=== PATIENT | female | born 1975 | race Caucasian/White ===

== ENCOUNTER 2017-07-14 14:55 | Emergency (ER) | payer OTHER ==
[~2017-07-14] VITALS: Ht 167.6 cm; Wt 101.6 kg
[~2017-07-14 14:55] MED LIST: ALBU90OI61; AMOX500 PO; ASPI325 PO; ASPI325EC; ASPI325EC PO; CITA20 PO; COMBIVENT RESPIM4 GM; DOXE25; INS70/30PN; INSUASPI SC; LANTUS SC; LISI10; LISI20 PO; LISI5 PO; Lamotrigine25 MG PO; MELO7.5; METO50; METO50ER PO; MIRT15 PO; Naprosyn500 MG PO; OMEP20ER PO; PERM5TC TOP; ROPI.25 PO; ROPI1 PO; SIMV40 PO; TIAZAC; TRAZ50; Ultram50 MG PO
[2017-07-14 15:24] LABS: BASOPHILS ABSOLUTE AUTO 0.02 K/mm3 (0.00-0.23); BASOPHILS PERCENT AUTO 0 % (0-2); EOSINOPHILS ABSOLUTE AUTO 0.13 K/mm3 (0.00-0.68); EOSINOPHILS PERCENT AUTO 1 % (0-6); Hematocrit 40.6 % (33.0-51.0); Hemoglobin 13.3 g/dL (11.5-16.0); IMMATURE GRAN ABSOLUTE AUTO 0.02 K/mm3 (0.00-0.10); IMMATURE GRAN PERCENT AUTO 0 % (0-1); LYMPHOCYTES ABSOLUTE AUTO 2.04 K/mm3 (0.84-5.20); LYMPHOCYTES PERCENT AUTO 22 % (21-46); MONOCYTES ABSOLUTE AUTO 0.42 K/mm3 (0.16-1.47); MONOCYTES PERCENT AUTO 4 % (4-13); Mean Corpuscular HGB 29.2 pg (26.0-34.0); Mean Corpuscular HGB Conc 32.8 g/dL (31.5-36.5); Mean Corpuscular Volume 89 fL (80-100); Mean Platelet Volume 8.9 fL (9.1-12.4); NEUTROPHILS ABSOLUTE AUTO 6.88 K/mm3 (1.96-9.15); NEUTROPHILS PERCENT AUTO 72 % (41-73); Platelet Count 336 K/mm3 (150-400); RDW Coefficient Variation 13.9 % (11.7-14.2); RDW Standard Deviation 45.4 fL (35.1-46.3); Red Blood Cell Count 4.55 M/mm3 (3.80-5.20); White Blood Cell Count 9.51 K/mm3 (4.00-11.30)
[2017-07-14 15:41] LABS: Source, Urine Clean Catch
[2017-07-14 15:42] LABS: Alanine Aminotransfer (ALT/SGP 21 U/L (12-78); Albumin, Blood 3.3 g/dL (3.4-5.0); Albumin/Globulin Ratio 0.9 (0.8-1.8); Alk Phos 144 U/L (50-136); Anion Gap 7 mmol/L (6-16); Aspartate Aminotrans (AST/SGOT 9 U/L (12-37); Bilirubin, Total 0.3 mg/dL (0.1-1.0); Blood Urea Nitrogen 14 mg/dL (8-24); CO2, Blood 26 mmol/L (21-32); Calcium, Blood 8.5 mg/dL (8.5-10.1); Chloride, Blood 106 mmol/L (98-108); Creatinine, Blood 0.56 mg/dL (0.40-1.00); Globulin, Blood 3.8 g/dL (2.2-4.0); Glomerular Filtration Rate >60 (60-); Glucose, Blood 253 mg/dL (70-99); Potassium, Blood 3.7 mmol/L (3.5-5.5); Sodium, Blood 139 mmol/L (136-145); Total Protein, Blood 7.1 g/dL (6.4-8.2)
[2017-07-14 16:01] LABS: Appearance, Urine Clear (Clear); Bilirubin, Urine Neg (Neg); Blood, Urine Neg (Neg); Color, Urine Yellow (P-Yellow); Glucose Qualitative, Urine 4+ (Neg); Ketones, Urine Neg (Neg); Leukocyte Esterase, Urine Neg (Neg); Nitrite, Urine Neg (Neg); Protein, Urine Neg (Neg); Specific Gravity, Urine 1.015 (1.003-1.022); Urobilinogen, Urine NORM (Normal)
== END 2017-07-14 20:03 | disposition left against medical advice (07) ==
LOC: ER 14:55
PROVIDERS: Emergency Medicine
DX: Z53.21 Procedure and treatment not carried out due to patient leaving prior to being seen by health care provider (principal)
CPT/HCPCS: 36415; 80053; 81003; 81025; 83690; 85025; 99283

== ENCOUNTER → 2017-07-24 | Outpatient (CLI) | payer OTHER ==
[~2017-07-24] MED LIST changes: +ATOR80 PO; +Aspirin EC81 MG PO; +D3-20002000 UNIT PO; +DULO30 PO; +EZET10 PO; +LAMO100 PO; +Mupirocin22 GM TOP; +Omeprazole20 M1 PO
[2017-07-24 15:11] LABS: Percent Saturation 10.2 % (15.0-50.0)
== END | disposition home or self-care (01) ==
LOC: LAB 12:30
PROVIDERS: Internal Medicine Hematology & Oncology
DX: R42 Dizziness and giddiness (principal); R53.83 Other fatigue
CPT/HCPCS: 82728; 83540; 83550

== ENCOUNTER → 2017-10-06 | Outpatient (CLI) | payer OTHER ==
[~2017-10-06] MED LIST changes: -ATOR80 PO; -Aspirin EC81 MG PO; -D3-20002000 UNIT PO; -DULO30 PO; -EZET10 PO; -LAMO100 PO; -Mupirocin22 GM TOP; -Omeprazole20 M1 PO
[2017-10-06 15:29] LABS: Adenovirus F 40/41 Not Detected (NOT DETECT); Astrovirus Not Detected (NOT DETECT); Campylobacter Sp Not Detected (NOT DETECT); Cryptosporidium Not Detected (NOT DETECT); Cyclospora Cayetanensis Not Detected (NOT DETECT); E. Coli O157 Not Detected (NOT DETECT); Entamoeba Histolytica Not Detected (NOT DETECT); Enteroaggregative E. coli-EAEC Not Detected (NOT DETECT); Enteropathogenic E. coli-EPEC Not Detected (NOT DETECT); Enterotoxigenic E. coli-ETEC Not Detected (NOT DETECT); Giardia Lamblia Not Detected (NOT DETECT); Norovirus GI/GII Not Detected (NOT DETECT); Plesiomonas Shigelloides Not Detected (NOT DETECT); Rotavirus A Not Detected (NOT DETECT); Salmonella Sp Not Detected (NOT DETECT); Sapovirus Not Detected (NOT DETECT); Shiga Toxin-prod E. coli-STEC Not Detected (NOT DETECT); Shigella/Enteroin E. coli-EIEC Not Detected (NOT DETECT); Vibrio Cholerae Not Detected (NOT DETECT); Vibrio Sp Not Detected (NOT DETECT); Yersinia Enterocolitica Not Detected (NOT DETECT)
== END | disposition home or self-care (01) ==
LOC: LAB SHORT 11:30 → LAB 11:30 → LAB FUT 09-29 12:25
PROVIDERS: Internal Medicine Gastroenterology
DX: R19.7 Diarrhea, unspecified (principal)
CPT/HCPCS: 87507

== ENCOUNTER 2017-11-11 05:48 | Emergency (ER) | payer OTHER ==
[~2017-11-11] VITALS: Ht 165.1 cm; Wt 106.6 kg
[2017-11-11] MEDS ORDERED: DULO30 PO (06:00)
[2017-11-11] MEDS ORDERED: Mupirocin22 GM TOP (06:17)
== END 2017-11-11 06:25 | disposition home or self-care (01) ==
LOC: ER 05:48
DX: L03.811 Cellulitis of head [any part, except face] (principal); E11.9 Type 2 diabetes mellitus without complications; F41.9 Anxiety disorder, unspecified; F32.9 Major depressive disorder, single episode, unspecified; I25.2 Old myocardial infarction; Z88.5 Allergy status to narcotic agent; Z88.8 Allergy status to other drugs, medicaments and biological substances; Z79.82 Long term (current) use of aspirin; Z79.899 Other long term (current) drug therapy; Z79.4 Long term (current) use of insulin
CPT/HCPCS: 99282

== ENCOUNTER 2018-06-22 12:55 | Emergency (ER) | payer OTHER ==
[~2018-06-22] VITALS: Ht 167.6 cm; Wt 90.7 kg
[~2018-06-22 12:55] MED LIST changes: +DULO30 PO; +Mupirocin22 GM TOP
[2018-06-22] MEDS ORDERED: METO50ER PO (13:27)
[2018-06-22] MEDS ORDERED: D3-20002000 UNIT PO (13:28)
[2018-06-22] MEDS ORDERED: Omeprazole20 M1 PO (13:28)
[2018-06-22] MEDS ORDERED: LAMO100 PO (13:30)
[2018-06-22] MEDS ORDERED: Aspirin EC81 MG PO (13:31)
[2018-06-22] MEDS ORDERED: EZET10 PO (13:31)
[2018-06-22] MEDS ORDERED: ATOR80 PO (13:32)
[2018-06-22 13:50] LABS: BASOPHILS ABSOLUTE AUTO 0.05 K/mm3 (0.00-0.23); BASOPHILS PERCENT AUTO 1 % (0-2); EOSINOPHILS ABSOLUTE AUTO 0.09 K/mm3 (0.00-0.68); EOSINOPHILS PERCENT AUTO 1 % (0-6); Hematocrit 39.8 % (33.0-51.0); IMMATURE GRAN ABSOLUTE AUTO 0.02 K/mm3 (0.00-0.10); IMMATURE GRAN PERCENT AUTO 0 % (0-1); LYMPHOCYTES ABSOLUTE AUTO 1.37 K/mm3 (0.84-5.20); LYMPHOCYTES PERCENT AUTO 17 % (21-46); MONOCYTES ABSOLUTE AUTO 0.62 K/mm3 (0.16-1.47); MONOCYTES PERCENT AUTO 8 % (4-13); Mean Corpuscular HGB 26.6 pg (26.0-34.0); Mean Corpuscular HGB Conc 32.7 g/dL (31.5-36.5); Mean Corpuscular Volume 82 fL (80-100); Mean Platelet Volume 9.1 fL (9.1-12.4); NEUTROPHILS ABSOLUTE AUTO 5.75 K/mm3 (1.96-9.15); NEUTROPHILS PERCENT AUTO 73 % (41-73); Platelet Count 374 K/mm3 (150-400); RDW Coefficient Variation 15.2 % (11.7-14.2); RDW Standard Deviation 45.1 fL (35.1-46.3); Red Blood Cell Count 4.88 M/mm3 (3.80-5.20)
[2018-06-22 14:05] LABS: Alanine Aminotransfer (ALT/SGP 21 U/L (12-78); Albumin, Blood 3.2 g/dL (3.4-5.0); Albumin/Globulin Ratio 0.7 (0.8-1.8); Alk Phos 128 U/L (50-136); Anion Gap 10 mmol/L (6-16); Aspartate Aminotrans (AST/SGOT 11 U/L (12-37); Bilirubin, Total 0.2 mg/dL (0.1-1.0); Blood Urea Nitrogen 15 mg/dL (8-24); Bun/Creatinine Ratio 24.2 (12.0-20.0); CO2, Blood 23 mmol/L (21-32); Calcium, Blood 8.4 mg/dL (8.5-10.1); Chloride, Blood 105 mmol/L (98-108); Creatinine, Blood 0.62 mg/dL (0.40-1.00); Globulin, Blood 4.3 g/dL (2.2-4.0); Glomerular Filtration Rate >60 (60-); Glucose, Blood 249 mg/dL (70-99); Potassium, Blood 3.9 mmol/L (3.5-5.5); Sodium, Blood 138 mmol/L (136-145); Total Protein, Blood 7.5 g/dL (6.4-8.2); Troponin I <0.015 ng/mL (0.000-0.040)
== END 2018-06-22 15:25 | disposition home or self-care (01) ==
LOC: ER 12:55
PROVIDERS: Emergency Medicine
DX: R00.2 Palpitations (principal); Z88.5 Allergy status to narcotic agent; Z88.8 Allergy status to other drugs, medicaments and biological substances; Z79.899 Other long term (current) drug therapy; Z79.4 Long term (current) use of insulin; Z79.82 Long term (current) use of aspirin; E11.9 Type 2 diabetes mellitus without complications; F32.9 Major depressive disorder, single episode, unspecified; F41.9 Anxiety disorder, unspecified; I25.2 Old myocardial infarction
CPT/HCPCS: 80053; 83690; 84443; 84484; 85025; 93005; 93010; 93225; 93226; 99285-25

== ENCOUNTER → 2019-11-16 | Outpatient (CLI) | payer OTHER ==
[~2019-11-16] MED LIST changes: +ATOR80 PO; +Aspirin EC81 MG PO; +D3-20002000 UNIT PO; +EZET10 PO; +LAMO100 PO; +Omeprazole20 M1 PO
[2019-11-16 11:58] LABS: Source, Urine Clean Catch
[2019-11-16 12:50] LABS: Bilirubin, Urine Neg (Neg); Blood, Urine Neg (Neg); Glucose Qualitative, Urine Neg (Neg); Ketones, Urine Neg (Neg); Leukocyte Esterase, Urine 3+ (Neg); Nitrite, Urine Neg (Neg); Protein, Urine Neg (Neg); Specific Gravity, Urine 1.015 (1.003-1.022); Urobilinogen, Urine NORM (Normal)
[2019-11-16 13:01] LABS: Appearance, Urine Clear (Clear); Color, Urine Yellow (P-Yellow)
[2019-11-16 13:06] LABS: Bacteria Mod /hpf; Red Blood Cells, Urine 0-2 /hpf (0-2); Squamous Epithelial Cells Few /hpf (Few); White Blood Cells, Urine 25-50 /hpf (0-5)
== END | disposition home or self-care (01) ==
LOC: LAB SHORT 11:57 → LAB 11:57 → EDSTATUS 11-14 11:30 → LAB FUT 11-14 11:30
PROVIDERS: Internal Medicine Gastroenterology
DX: N30.00 Acute cystitis without hematuria (principal); R19.7 Diarrhea, unspecified
CPT/HCPCS: 81001; 87086

== ENCOUNTER → 2019-11-17 | Outpatient (CLI) | payer OTHER ==
[2019-11-17 16:17] LABS: Adenovirus F 40/41 Not Detected (NOT DETECT); Astrovirus Not Detected (NOT DETECT); Campylobacter Sp Not Detected (NOT DETECT); Cryptosporidium Not Detected (NOT DETECT); Cyclospora Cayetanensis Not Detected (NOT DETECT); E. Coli O157 Not Detected (NOT DETECT); Entamoeba Histolytica Not Detected (NOT DETECT); Enteroaggregative E. coli-EAEC Not Detected (NOT DETECT); Enteropathogenic E. coli-EPEC Not Detected (NOT DETECT); Enterotoxigenic E. coli-ETEC Not Detected (NOT DETECT); Giardia Lamblia Not Detected (NOT DETECT); Norovirus GI/GII Not Detected (NOT DETECT); Plesiomonas Shigelloides Not Detected (NOT DETECT); Rotavirus A Not Detected (NOT DETECT); Salmonella Sp Not Detected (NOT DETECT); Sapovirus Not Detected (NOT DETECT); Shiga Toxin-prod E. coli-STEC Not Detected (NOT DETECT); Shigella/Enteroin E. coli-EIEC Not Detected (NOT DETECT); Vibrio Cholerae Not Detected (NOT DETECT); Vibrio Sp Not Detected (NOT DETECT); Yersinia Enterocolitica Not Detected (NOT DETECT)
== END | disposition home or self-care (01) ==
LOC: LAB 08:00 → LAB SHORT 08:00 → LAB FUT 11-14 12:05
PROVIDERS: Internal Medicine Gastroenterology
DX: N30.00 Acute cystitis without hematuria (principal); R19.7 Diarrhea, unspecified
CPT/HCPCS: 0097U

== ENCOUNTER → 2022-01-24 | Outpatient (CLI) | payer OTHER ==
[2022-01-29 03:09] LABS: CHLAMYDIA TRACHOMATIS, NAA Negative (Negative); HPV 16 Negative (Negative); HPV 18 Negative (Negative); HPV OTHER HR TYPES Negative (Negative)
== END | disposition home or self-care (01) ==
LOC: LAB SHORT 17:35 → LAB 17:35
PROVIDERS: Nurse Practitioner Family
DX: Z01.419 Encounter for gynecological examination (general) (routine) without abnormal findings (principal)
CPT/HCPCS: 87491; 87591; 87624; G0123

== ENCOUNTER → 2022-03-20 | Outpatient (CLI) | payer OTHER ==
[2022-03-20 17:27] LABS: Microalbumin, Urine Quant. <5.000 mg/L (0.000-20.000); Protein, Urine Quantitative <5.0 mg/dL (0.0-11.9)
== END | disposition home or self-care (01) ==
LOC: LAB 07:00 → LAB SHORT 07:00
PROVIDERS: Internal Medicine Nephrology
DX: N18.2 Chronic kidney disease, stage 2 (mild) (principal); D75.1 Secondary polycythemia; R80.9 Proteinuria, unspecified; R76.9 Abnormal immunological finding in serum, unspecified; R94.5 Abnormal results of liver function studies; R94.6 Abnormal results of thyroid function studies
CPT/HCPCS: 81050; 82043; 82570; 84156

== ENCOUNTER → 2023-04-08 | Outpatient (CLI) | payer OTHER | END | disposition home or self-care (01) | LOC: LAB SHORT 17:43 → LAB 17:43 | DX: N76.4 Abscess of vulva (principal) | CPT/HCPCS: 87070; 87075; 87205 ==

== ENCOUNTER 2024-05-10 19:55 | Emergency (ER) | payer OTHER ==
[~2024-05-10] VITALS: Ht 167.6 cm; Wt 117.9 kg
[2024-05-10 20:40] LABS: BASOPHILS ABSOLUTE AUTO 0.09 K/mm3 (0.00-0.23); BASOPHILS PERCENT AUTO 1 % (0-2); EOSINOPHILS ABSOLUTE AUTO 0.24 K/mm3 (0.00-0.68); EOSINOPHILS PERCENT AUTO 3 % (0-6); Hematocrit 41.7 % (33.0-51.0); Hemoglobin 14.2 g/dL (11.5-16.0); IMMATURE GRAN ABSOLUTE AUTO 0.05 K/mm3 (0.00-0.10); IMMATURE GRAN PERCENT AUTO 1 % (0-1); LYMPHOCYTES ABSOLUTE AUTO 2.29 K/mm3 (0.84-5.20); LYMPHOCYTES PERCENT AUTO 25 % (21-46); MONOCYTES ABSOLUTE AUTO 0.66 K/mm3 (0.16-1.47); MONOCYTES PERCENT AUTO 7 % (4-13); Mean Corpuscular HGB 31.8 pg (26.0-34.0); Mean Corpuscular HGB Conc 34.1 g/dL (31.5-36.5); Mean Corpuscular Volume 94 fL (80-100); Mean Platelet Volume 8.6 fL (9.1-12.4); NEUTROPHILS PERCENT AUTO 64 % (41-73); Platelet Count 336 K/mm3 (150-400); RDW Standard Deviation 44.4 fL (35.1-46.3); Red Blood Cell Count 4.46 M/mm3 (3.80-5.20); White Blood Cell Count 9.13 K/mm3 (4.00-11.30)
[2024-05-10 20:55] LABS: Albumin, Blood 3.1 g/dL (3.4-5.0); Albumin/Globulin Ratio 0.8 (0.8-1.8); Bilirubin, Total 0.5 mg/dL (0.1-1.0); Bun/Creatinine Ratio 25.7 (12.0-20.0); Calcium, Blood 9.2 mg/dL (8.5-10.1); Creatinine, Blood 0.7 mg/dL (0.40-1.00); Globulin, Blood 3.9 g/dL (2.2-4.0); Potassium, Blood 3.9 mmol/L (3.5-5.5)
[2024-05-10] MEDS ORDERED: LISI20 PO (21:15)
[2024-05-10] MEDS ORDERED: ESTARYLLA 0.251 EACH PO (21:16)
[2024-05-10] MEDS ORDERED: Hydroxyzine HCl50 MG (21:17)
[2024-05-10] MEDS ORDERED: TRULICITY1.5 MG/0.1 SC (21:18)
[2024-05-10] MEDS ORDERED: INSULIN GL100 UNIT/2 SC (21:18)
[2024-05-10 21:23] LABS: Source, Urine Clean Catch
[2024-05-10 21:27] LABS: Appearance, Urine Clear (Clear); Bilirubin, Urine Neg (Neg); Blood, Urine Neg (Neg); Color, Urine Yellow (P-Yellow); Glucose Qualitative, Urine 1+ (Neg); Ketones, Urine 2+ (Neg); Leukocyte Esterase, Urine Neg (Neg); Nitrite, Urine Neg (Neg); Protein, Urine Neg (Neg); Urobilinogen, Urine NORM (Normal)
[2024-05-10 21:43] VITALS: BP 125/60
== END 2024-05-10 22:05 | disposition home or self-care (01) ==
LOC: ER 19:55
PROVIDERS: Emergency Medicine
DX: R00.0 Tachycardia, unspecified (principal); E11.65 Type 2 diabetes mellitus with hyperglycemia; Z79.4 Long term (current) use of insulin; Z79.82 Long term (current) use of aspirin; Z79.899 Other long term (current) drug therapy
CPT/HCPCS: 80053; 81003; 84484; 85025; 93005; 93010; 99285-25

== ENCOUNTER → 2024-10-18 | Outpatient (CLI) | payer OTHER ==
[~2024-10-18] MED LIST changes: +ESTARYLLA 0.251 EACH PO; +Hydroxyzine HCl50 MG; +INSULIN GL100 UNIT/2 SC; +TRULICITY1.5 MG/0.1 SC
[2024-10-25 16:13] LABS: HPV HIGH RISK BY TMA Not Detected; HPV SOURCE Cervical/Vag
== END ==
LOC: LAB 15:34 → LAB SHORT 15:34
PROVIDERS: Obstetrics & Gynecology
DX: Z01.411 Encounter for gynecological examination (general) (routine) with abnormal findings (principal)
CPT/HCPCS: 87624; G0123

== ENCOUNTER 2025-03-26 11:14 | Emergency (ER) | payer OTHER ==
[~2025-03-26] VITALS: Ht 165.1 cm; Wt 115.2 kg
[~2025-03-26 11:14] MED LIST changes: -INSUASPI SC; +NOVOLOG FL100 UNIT/3 SC
[2025-03-26] MEDS ORDERED: Ondansetron HCl 2 MG / ML 2ML Vial IV ONE (11:40)
[2025-03-26] MEDS ORDERED: Ketorolac Tromethamine 15mg Vial IV ONE (11:40)
[2025-03-26] MEDS ORDERED: NS 1,000 ML IV SCH (11:40)
[2025-03-26 11:56] LABS: BASOPHILS ABSOLUTE AUTO 0.07 K/mm3 (0.00-0.23); BASOPHILS PERCENT AUTO 1 % (0-2); EOSINOPHILS ABSOLUTE AUTO 0.13 K/mm3 (0.00-0.68); EOSINOPHILS PERCENT AUTO 1 % (0-6); Hematocrit 42.3 % (33.0-51.0); Hemoglobin 14.3 g/dL (11.5-16.0); IMMATURE GRAN ABSOLUTE AUTO 0.08 K/mm3 (0.00-0.10); IMMATURE GRAN PERCENT AUTO 1 % (0-1); LYMPHOCYTES ABSOLUTE AUTO 1.42 K/mm3 (0.84-5.20); LYMPHOCYTES PERCENT AUTO 10 % (21-46); MONOCYTES ABSOLUTE AUTO 0.66 K/mm3 (0.16-1.47); MONOCYTES PERCENT AUTO 5 % (4-13); Mean Corpuscular HGB Conc 33.8 g/dL (31.5-36.5); Mean Corpuscular Volume 91 fL (80-100); NEUTROPHILS ABSOLUTE AUTO 11.68 K/mm3 (1.96-9.15); NEUTROPHILS PERCENT AUTO 83 % (41-73); NRBC ABSOLUTE 0.00 K/mm3 (0.00-0.02); NRBC Auto 0.0 /100 WBC (0.0-0.2); Platelet Count 325 K/mm3 (150-400); RDW Coefficient Variation 12.9 % (11.7-14.2); RDW Standard Deviation 42.9 fL (35.1-46.3)
[2025-03-26 11:59] VITALS: BP 133/73
[2025-03-26 12:18] LABS: Alanine Aminotransfer (ALT/SGP 29.0 U/L (12-78); Albumin, Blood 3.4 g/dL (3.4-5.0); Albumin/Globulin Ratio 0.9 (0.8-1.8); Anion Gap 10.0 mmol/L (3-11); Aspartate Aminotrans (AST/SGOT 17.0 U/L (12-37); Bilirubin, Total 0.6 mg/dL (0.1-1.0); Blood Urea Nitrogen 12.0 mg/dL (8-24); CO2, Blood 25.0 mmol/L (21-32); Calcium, Blood 8.6 mg/dL (8.5-10.1); Chloride, Blood 103.0 mmol/L (98-108); Creatinine, Blood 0.56 mg/dL (0.40-1.00); Globulin, Blood 3.7 g/dL (2.2-4.0); Glucose, Blood 232.0 mg/dL (70-99); Potassium, Blood 3.9 mmol/L (3.5-5.5); Sodium, Blood 134.0 mmol/L (136-145); Total Protein, Blood 7.1 g/dL (6.4-8.2)
== END 2025-03-26 13:11 | disposition home or self-care (01) ==
LOC: ER 11:14
PROVIDERS: Emergency Medicine
DX: R10.84 Generalized abdominal pain (principal); R11.0 Nausea; D72.829 Elevated white blood cell count, unspecified; E11.649 Type 2 diabetes mellitus with hypoglycemia without coma; I25.2 Old myocardial infarction; Z88.5 Allergy status to narcotic agent; Z79.4 Long term (current) use of insulin; Z79.82 Long term (current) use of aspirin; Z79.85 Long-term (current) use of injectable non-insulin antidiabetic drugs; Z79.899 Other long term (current) drug therapy
CPT/HCPCS: 80053; 83690; 85025; 96374; 96375; 99284-25; A9270; J1885; J2405; J7030

== ENCOUNTER 2025-04-03 01:01 | Inpatient (IN) | payer OTHER ==
[~2025-04-03] VITALS: Ht 165.1 cm; Wt 114.1 kg
[2025-04-03] VITALS (16 sets, daily range): BP systolic 104–155; BP diastolic 53–93
[~2025-04-03 01:01] MED LIST changes: -ALBU90OI61; +ALBU90OI61 INH; -D3-20002000 UNIT PO; -Hydroxyzine HCl50 MG; +Hydroxyzine HCl50 MG PO; -Omeprazole20 M1 PO; +VITAMIN D5000 UNIT PO
[2025-04-03] MEDS ORDERED: Ketorolac Tromethamine 30mg Vial IV ONE (01:30)
[2025-04-03 01:53] LABS: BASOPHILS ABSOLUTE AUTO 0.10 K/mm3 (0.00-0.23); BASOPHILS PERCENT AUTO 1 % (0-2); EOSINOPHILS ABSOLUTE AUTO 0.16 K/mm3 (0.00-0.68); EOSINOPHILS PERCENT AUTO 1 % (0-6); Hematocrit 41.0 % (33.0-51.0); Hemoglobin 14.0 g/dL (11.5-16.0); IMMATURE GRAN ABSOLUTE AUTO 0.17 K/mm3 (0.00-0.10); IMMATURE GRAN PERCENT AUTO 1 % (0-1); LYMPHOCYTES ABSOLUTE AUTO 1.21 K/mm3 (0.84-5.20); LYMPHOCYTES PERCENT AUTO 8 % (21-46); MONOCYTES ABSOLUTE AUTO 1.05 K/mm3 (0.16-1.47); MONOCYTES PERCENT AUTO 7 % (4-13); Mean Corpuscular HGB Conc 34.1 g/dL (31.5-36.5); Mean Corpuscular Volume 92 fL (80-100); NEUTROPHILS ABSOLUTE AUTO 12.63 K/mm3 (1.96-9.15); NEUTROPHILS PERCENT AUTO 82 % (41-73); NRBC ABSOLUTE 0.00 K/mm3 (0.00-0.02); NRBC Auto 0.0 /100 WBC (0.0-0.2); Platelet Count 380 K/mm3 (150-400); RDW Coefficient Variation 13.1 % (11.7-14.2); RDW Standard Deviation 44.2 fL (35.1-46.3)
[2025-04-03 01:58] LABS: Alanine Aminotransfer (ALT/SGP 22.0 U/L (12-78); Albumin, Blood 3.3 g/dL (3.4-5.0); Albumin/Globulin Ratio 0.8 (0.8-1.8); Anion Gap 9.0 mmol/L (3-11); Aspartate Aminotrans (AST/SGOT 13.0 U/L (12-37); Bilirubin, Total 0.5 mg/dL (0.1-1.0); Blood Urea Nitrogen 15.0 mg/dL (8-24); CO2, Blood 24.0 mmol/L (21-32); Calcium, Blood 9.2 mg/dL (8.5-10.1); Chloride, Blood 103.0 mmol/L (98-108); Creatinine, Blood 0.83 mg/dL (0.40-1.00); Globulin, Blood 4.0 g/dL (2.2-4.0); Glucose, Blood 235.0 mg/dL (70-99); Potassium, Blood 4.2 mmol/L (3.5-5.5); Sodium, Blood 132.0 mmol/L (136-145); Total Protein, Blood 7.3 g/dL (6.4-8.2)
[2025-04-03 02:16] LABS: Source, Urine Clean Catch
[2025-04-03 02:20] LABS: Bilirubin, Urine Neg (Neg); Glucose Qualitative, Urine 1+ (Neg); Ketones, Urine 4+ (Neg); Leukocyte Esterase, Urine 1+ (Neg); Protein, Urine Neg (Neg); Specific Gravity, Urine 1.015 (1.003-1.022); Urobilinogen, Urine NORM (Normal)
[2025-04-03 02:31] LABS: Color, Urine Yellow (P-Yellow); Red Blood Cells, Urine Not Seen /hpf (0-2); White Blood Cells, Urine 0-2 /hpf (0-5)
[2025-04-03] MEDS ORDERED: Piperacillin/Tazobactam Sod 4.5 GM in NS 100 ML IV ONE (03:10)
[2025-04-03] MEDS ORDERED: NS 1,000 ML IV SCH (03:15)
[2025-04-03] MEDS ORDERED: FLU VACC TS2025-26(6MOS UP)/PF 45 MCG/0.5 ML SYRINGE IM SCH (03:25)
[2025-04-03] MEDS ORDERED: Ondansetron HCl 2 MG / ML 2ML Vial IV PRN ×3 (03:25→18:25)
[2025-04-03] MEDS ORDERED: NS 1,000 ML IV ONE (03:25)
[2025-04-03] MEDS ORDERED: FentaNYL Citrate 50 MCG/ML 2 ML Injection IV PRN ×6 (03:25→23:30)
[2025-04-03] MEDS ORDERED: Ampicillin Sod/Sulbactam Sod 3 GM in NS 100 ML IV SCH (03:30)
[2025-04-03] MEDS ORDERED: NOVOLIN N100 UNIT/2 SC (05:19)
[2025-04-03] MEDS ORDERED: Budeprion Xl300 MG PO (05:24)
[2025-04-03] MEDS ORDERED: MOUNJARO2.5 MG/0.5 SC (05:28)
[2025-04-03] MEDS ORDERED: HUMALOG KW100 UNIT/1 SC (05:28)
--- NOTE | 2025-04-03 06:20 | NUR ---
PT ARRIVED TO ROOM 224 FROM ER. PT A/O X4, VSS. ABD MORE DISTENDED FROM BASELINE PER PT, TENDER TO PALP. PT REP PABD PAIN TIKA AT THIS TIME, DENIES N/V. HR SINUS 100 PER TELE MONITOR. SURGICAL [place] COMPLETED, PT ORIENTED TO ROOM/CALL LIGHT AND NPO STATUS. AWAITING SURGICAL CONSULT.
[2025-04-03] MEDS ORDERED: Insulin Human Lispro 100 Units/ML 3ML Syringe SC SCH ×2 (07:30→12:00)
--- NOTE | 2025-04-03 14:51 | NUR ---
PT WITH DAY SURGERY NURSE @ 0672
[2025-04-03] MEDS ORDERED: Metoclopramide HCl 5MG / ML 2ML Vial IV ONE (15:05)
[2025-04-03] MEDS ORDERED: Citric Acid/Sodium Citrate 30 ML BTL PO ONE (15:05)
[2025-04-03] MEDS ORDERED: Midazolam HCl 1MG / ML 2ML Vial ONE (15:13)
[2025-04-03] MEDS ORDERED: FentaNYL Citrate 50 MCG/ML 5 ML Injection ONE (15:13)
[2025-04-03] MEDS ORDERED: Albuterol 2.5 MG/3 ML VIAL INH PRN (15:15)
[2025-04-03] MEDS ORDERED: ePHEDrine Sulfate 50 MG/ML 1ML Injection IV PRN (15:15)
[2025-04-03] MEDS ORDERED: Bupivacaine 0.5% W/EPI 1:200000 SDV 30 ML Vial ONE (15:35)
[2025-04-03] MEDS ORDERED: Rocuronium Bromide 10 MG/ML 5ML Injection IV ONE ×2 (16:47→17:04)
[2025-04-03] MEDS ORDERED: Ondansetron HCl 2 MG / ML 2ML Vial ONE (16:47)
[2025-04-03] MEDS ORDERED: SuccINYLCHOLINE Chloride 100 MG/5 ML 5MLSYR ONE (16:47)
[2025-04-03] MEDS ORDERED: Dexamethasone Sod Phos 10 MG/ML 1ML VIAL ONE (16:47)
--- NOTE | 2025-04-03 16:51 | NUR ---
ASSUMED CARE OF PT @0700 VSS. AXO4. PAINFUL - MEDS PER EMAR FOR RUQ PAIN - SUCCESSFUL AT ALLEVIATING PAIN TO 0/10 PER PT. DENIED NAUSEA/VOMITING. AMBULATORY. NPO PREOP EXCEPT FOR A PAIN MEDICATION. IV FLUIDS INFUSIING ORDERED WELL ABX. AWAITING PT TO ARRIVE BACK TO UNIT FROM SURGERY. SEE DAY SURGERY CONTRACT ADMINISTRATION MANAGER TIME NOTE.
[2025-04-03] MEDS ORDERED: HYDROmorphone HCl/Pf 1MG SYR ONE (17:24)
[2025-04-03] MEDS ORDERED: Magnesium Sulfate 500 MG / ML 2ML Vial ONE (17:36)
[2025-04-03] MEDS ORDERED: Insulin Regular 100 UNIT/ML 10ML Vial ONE (17:54)
[2025-04-03] MEDS ORDERED: Sugammadex Sodium 200 MG/2ML SDV (100 MG/ML) ONE (18:09)
[2025-04-03] MEDS ORDERED: HYDROmorphone HCl/Pf 1MG SYR IV PRN ×2 (18:25→18:30)
[2025-04-03] MEDS ORDERED: Albuterol 2.5 MG/3 ML VIAL ONE (18:51)
[2025-04-03] MEDS ORDERED: Ketorolac Tromethamine 15mg Vial IV PRN (23:30)
[2025-04-04 00:15] VITALS: BP 141/58
[2025-04-04 04:14] VITALS: BP 132/58
[2025-04-04 05:09] LABS: BASOPHILS ABSOLUTE AUTO 0.08 K/mm3 (0.00-0.23); BASOPHILS PERCENT AUTO 1 % (0-2); EOSINOPHILS ABSOLUTE AUTO 0.04 K/mm3 (0.00-0.68); EOSINOPHILS PERCENT AUTO 0 % (0-6); Hematocrit 35.4 % (33.0-51.0); Hemoglobin 11.8 g/dL (11.5-16.0); IMMATURE GRAN ABSOLUTE AUTO 0.12 K/mm3 (0.00-0.10); IMMATURE GRAN PERCENT AUTO 1 % (0-1); LYMPHOCYTES ABSOLUTE AUTO 1.14 K/mm3 (0.84-5.20); LYMPHOCYTES PERCENT AUTO 8 % (21-46); MONOCYTES ABSOLUTE AUTO 1.00 K/mm3 (0.16-1.47); MONOCYTES PERCENT AUTO 7 % (4-13); Mean Corpuscular HGB Conc 33.3 g/dL (31.5-36.5); Mean Corpuscular Volume 94 fL (80-100); NEUTROPHILS ABSOLUTE AUTO 12.63 K/mm3 (1.96-9.15); NEUTROPHILS PERCENT AUTO 84 % (41-73); NRBC ABSOLUTE 0.00 K/mm3 (0.00-0.02); NRBC Auto 0.0 /100 WBC (0.0-0.2); Platelet Count 335 K/mm3 (150-400); RDW Coefficient Variation 13.2 % (11.7-14.2); RDW Standard Deviation 45.1 fL (35.1-46.3)
[2025-04-04 05:31] LABS: Anion Gap 10.0 mmol/L (3-11); Blood Urea Nitrogen 6.0 mg/dL (8-24); CO2, Blood 25.0 mmol/L (21-32); Calcium, Blood 7.7 mg/dL (8.5-10.1); Chloride, Blood 100.0 mmol/L (98-108); Creatinine, Blood 0.72 mg/dL (0.40-1.00); Glucose, Blood 339.0 mg/dL (70-99); Potassium, Blood 4.2 mmol/L (3.5-5.5); Sodium, Blood 131.0 mmol/L (136-145)
--- NOTE | 2025-04-04 06:12 | NUR ---
SHIFT SUMMARY PT S/P LAP APPY. PT PAINFUL POST OP, PAIN MEDICATIONS WERE ADJUSTED AND PT REPORTS RELIEF OF PAIN. PT HAS BEEN UP AND AMBULATING AND VOIDING. SEN DRAIN WITH SS DISCHARGE, OUT HAS IS DECREASING. IV ANTIBIOTICS PER ORDERS. SURGICAL SITE WNL. POST OP VITALS STABLE. BED IN LOWEST POSITION, CALL LIGHT WITHIN REACH.
[2025-04-04 07:07] VITALS: BP 113/60
[2025-04-04 07:15] VITALS: BP 144/78
[2025-04-04] MEDS ORDERED: Insulin Human Lispro 100 Units/ML 3ML Syringe SC SCH ×3 (07:30→21:00)
[2025-04-04] MEDS ORDERED: Insulin NPH 100 Unit / ML 10ML Vial SC SCH ×2 (09:00→21:00)
[2025-04-04] MEDS ORDERED: Insulin Human Lispro 100 Units/ML 3ML Syringe SC ONE ×2 (11:00→15:00)
[2025-04-04] MEDS ORDERED: NS 250 ML IV PRN (11:35)
[2025-04-04] MEDS ORDERED: IPRAT-ALBUT 0.5-3 ML INH (11:53)
[2025-04-04] MEDS ORDERED: METOPROLOL TART5010 PO (11:53)
[2025-04-04] MEDS ORDERED: ATORVASTATIN CA20 MG PO (11:53)
[2025-04-04] MEDS ORDERED: BUPROPION XL150 M1 PO (11:54)
--- NOTE | 2025-04-04 13:16 | NUR ---
DR LIM IN TO SEE PT.
[2025-04-04] MEDS ORDERED: Enoxaparin 40 MG/0.4 ML SYR SC SCH (14:00)
--- NOTE | 2025-04-04 14:10 | NUR ---
CBG 373. NOTIFIED DR LUONG. ORDERS PENDING.
[2025-04-04 15:24] VITALS: BP 112/55
--- NOTE | 2025-04-04 17:22 | NUR ---
SUMMARY PT HAS HAD ELEVATED CBGS IN 300S T/O SHIFT. HAVE DISCUSSED T/O DAY WITH DR LUONG AND MANAGED PER ORDERS. THIS EVENING, CBG IMPROVED TO 331. PLAN TO COVER W/8 UNITS HUMALOG PER ORDERS. MEDICATED PT T/O DAY FOR LOWER ABD PAIN. EMPTIED SEN MULTIPLE TIMES OF SS DRAINAGE. PT GETTING UP INDEPENDENTLY TO USE RESTROOM. PLEASANT AND COOPERATIVE. CALL LIGHT IN REACH.
[2025-04-04 18:21] LABS: Anion Gap 8.0 mmol/L (3-11); Blood Urea Nitrogen 10.0 mg/dL (8-24); CO2, Blood 26.0 mmol/L (21-32); Calcium, Blood 7.8 mg/dL (8.5-10.1); Chloride, Blood 100.0 mmol/L (98-108); Creatinine, Blood 0.82 mg/dL (0.40-1.00); Glucose, Blood 336.0 mg/dL (70-99); Potassium, Blood 4.6 mmol/L (3.5-5.5); Sodium, Blood 129.0 mmol/L (136-145)
[2025-04-04 20:41] VITALS: BP 140/72
[2025-04-04] MEDS ORDERED: Ondansetron HCl 2 MG / ML 2ML Vial IV PRN (21:00)
--- NOTE | 2025-04-04 21:56 | NUR ---
REPORT GIVEN TO CHRISTA ALVARADO RN TO ASSUME CARE OF PT. PT RESTING IN BED WITHOUT ACUTE DISTRESS. DENIES NEEDS AT THIS TIME.
[2025-04-05 04:46] VITALS: BP 127/67
--- NOTE | 2025-04-05 04:58 | NUR ---
SHIFT SUMMARY NO ACUTE CHANGES T/O SHIFT. IS POD 2 S/P LAP APPY. INCISIONS CDI. SEN IN PLACE AND DRAINING SS FLUID. ON 2L NC, DENIES SOB OR CHEST PAIN. PT IND IN ROOM. IS VOIDING. ABX INFUSING PER ORDERS. IS ABLE TO MAKE NEEDS KNOWN. IS CURRENTLY RESTING IN BED WITH CALL LIGHT IN REACH, RESP EVEN/UNLABORED. WILL GIVE REPORT TO ONCOMING RN.
[2025-04-05 05:35] LABS: BASOPHILS ABSOLUTE AUTO 0.08 K/mm3 (0.00-0.23); BASOPHILS PERCENT AUTO 1 % (0-2); EOSINOPHILS ABSOLUTE AUTO 0.20 K/mm3 (0.00-0.68); EOSINOPHILS PERCENT AUTO 1 % (0-6); Hematocrit 34.7 % (33.0-51.0); Hemoglobin 11.8 g/dL (11.5-16.0); IMMATURE GRAN ABSOLUTE AUTO 0.22 K/mm3 (0.00-0.10); IMMATURE GRAN PERCENT AUTO 1 % (0-1); LYMPHOCYTES ABSOLUTE AUTO 0.89 K/mm3 (0.84-5.20); LYMPHOCYTES PERCENT AUTO 6 % (21-46); MONOCYTES ABSOLUTE AUTO 0.87 K/mm3 (0.16-1.47); MONOCYTES PERCENT AUTO 6 % (4-13); Mean Corpuscular HGB Conc 34.0 g/dL (31.5-36.5); Mean Corpuscular Volume 93 fL (80-100); NEUTROPHILS ABSOLUTE AUTO 13.55 K/mm3 (1.96-9.15); NEUTROPHILS PERCENT AUTO 86 % (41-73); NRBC ABSOLUTE 0.00 K/mm3 (0.00-0.02); NRBC Auto 0.0 /100 WBC (0.0-0.2); RDW Coefficient Variation 13.3 % (11.7-14.2); RDW Standard Deviation 45.1 fL (35.1-46.3)
[2025-04-05 07:16] VITALS: BP 109/54
[2025-04-05] MEDS ORDERED: Insulin NPH 100 Unit / ML 10ML Vial SC SCH (09:00)
[2025-04-05] MEDS ORDERED: NS 1,000 ML IV ONE (09:00)
[2025-04-05] MEDS ORDERED: Insulin Human Lispro 100 Units/ML 3ML Syringe SC ONE (14:00)
[2025-04-05 14:21] VITALS: BP 100/52
--- NOTE | 2025-04-05 14:48 | NUR ---
PT REFUSING TO AMBULATE. EDUCATED PT ON BENEFITS OF EARLY AMBULATION. PT DECLINED AMBULATION STATES "MAYBE LATER". PT HAS BEEN ENCOURAGED TO AMBULATE MULTIPLE TIMES T/O THIS SHIFT.
--- NOTE | 2025-04-05 17:37 | NUR ---
SHIFT SUMMARY PT IS A/OX4. POD2 LAP APPY. TOLERATING PO INTAKE, VOIDING WELL. PT ONLY REPORTED FEELING NAUSEOUS ONCE, MANAGED PER EMAR. PT IS IND IN ROOM, AMBULATING TO BTHRM. PT IS PASSING FLATUS BUT IS YET TO HAVE A BM YET. CBG WAS ABOVE [address] LUONG NOTIFIED, ORDERED ONE TIME DOSE 10 UNITS OF INSULIN. MOST RECENT CBG WAS AROUND 250. SEN IS PUTTING OUT SEROSANGUINOUS DRAINAGE, PT IS IND IN EMPTYING THE DRAIN.
[2025-04-05 19:37] VITALS: BP 99/48
[2025-04-05 20:26] VITALS: BP 140/65
--- NOTE | 2025-04-06 03:53 | NUR ---
SHIFT SUMMARY PT IS POD 3 S/P LAP APPY. ABD INCISIONS CDI- NO DRAINAGE OR INCREASED REDNESS NOTED. SEN DRAIN IN PLACE, SS DRAINAGE NOTED. PT ABLE TO CARE FOR DRAIN IND, BULB COMPRESSED AND DRESSING INTACT. MEDICATED X 1 FOR PAIN WITH TORADOL PER EMAR. ABX INFUSED PER ORDERS. PT IS VOIDING AND REPORTS PASSING FLATUS. ENCOURAGED OOB, PO INTAKE AND AMBULATION TOLERATED. PT IND IN ROOM. ABLE TO REST T/O MOST OF NIGHT WITH EYES CLOSED AND RESP EVEN. PLAN TO INCREASE PO INTAKE TODAY ABLE. WILL GIVE REPORT TO ON COMING RN.
[2025-04-06 04:04] VITALS: BP 105/54
[2025-04-06 08:06] VITALS: BP 138/75
[2025-04-06] MEDS ORDERED: Polyethylene Glycol 3350 17 gm PO SCH (13:00)
[2025-04-06 15:40] VITALS: BP 146/62
--- NOTE | 2025-04-06 16:27 | NUR ---
SUMMARY: PT IS POD3. A/O, VSS. SURGICAL SITES WNL.SEN HAS SS DRAINAGE AND BULB COMPRESSED. PT MEDICATED PER EMAR FOR PAIN. DOES HAVE INTERMITTANT NAUSEA. REPORTS PASSING GAS. IV ANTIBIOTICS INFUSED. DOING WELL ON RA. NO ACUTE CONCERNS.
[2025-04-06] MEDS ORDERED: Insulin Human Lispro 100 Units/ML 3ML Syringe SC SCH (16:30)
--- NOTE | 2025-04-06 18:24 | NUR ---
PT REPORTS FEELING "MORE INTENSE AND ACHY" ABD PAIN TONIGHT. ABD APPEARS MORE BLOATED TONIGHT COMPARED TO THIS MORNING, SURGICAL SITES WNL. PT REPORTS SHE HASEN'T PASSED GAS SINCE THIS MORNING AND REPORTS MORE PAIN SINCE DRINKING MIRALAX. PT ENCOURAGED TO SLOW DOWN WITH EATING FOOD AND DRINK SIPS OF FLUIDS. MEDICATED FOR PAIN.
[2025-04-06 19:16] VITALS: BP 132/54
--- NOTE | 2025-04-07 03:51 | NUR ---
SHIFT SUMMERY NO ACUTE CHANGES T/O SHIFT. ABD INCISIONS CDI, NO DRAINAGE NOTED. SEN IN PLACE, DRAINING SEROUS FLUID WITH BULB COMPRESSED. SEN DRESSING CHANGED DUE TO SATURATION WITH LEAKING AROUND INSERTION. PAIN MANAGED X 1 WITH TORADOL. ABX INFUSED PER ORDERS. PT REPORTS SLEEPING T/O MOST OF NIGHT. IS IND IN ROOM. REPORTS PASSING FLATUS X1 DURING DAY AND IS VOIDING. STRONGLY ENCOURAGED AMBULATION IN HALLWAYS AND PO FLUID. PT DECLINED AMBULATION, CLAIMING TO BE UP IN ROOM ENOUGH. PT CURRENTLY RESTING IN BED WITH CALL LIGHT IN REACH. WILL GIVE REPORT TO ONCOMING RN.
[2025-04-07 04:07] VITALS: BP 113/54
--- NOTE | 2025-04-07 04:20 | NUR ---
SHIFT SUMMARY NO ACUTE CHANGES T/O SHIFT. ABD INCISIONS CDI, NO DRAINAGE NOTED. SEN IN PLACE, DRAINING SEROUS FLUID WITH BULB COMPRESSED. SEN DRESSING CHANGED DUE TO SATURATION WITH LEAKING AROUND INSERTION. PAIN MANAGED X 1 WITH TORADOL. ABX INFUSED PER ORDERS. PT REPORTS SLEEPING T/O NIGHT. IS IND IN ROOM. REPORTS PASSING FLATUS X 1 DURING DAY AND IS VOIDING. STRONGLY ENCOURAGED AMBULATION IN HALLWAYS AND PO FLUID. PT DECLINED AMBULATION, CLAIMING TO BE UP IN ROOM ENOUGH. PT CURRENTLY RESTING IN BED WITH CALL LIGHT IN REACH. WILL GIVE REPORT TO ONCOMING RN.
[2025-04-07 05:04] LABS: BASOPHILS ABSOLUTE AUTO 0.07 K/mm3 (0.00-0.23); BASOPHILS PERCENT AUTO 1 % (0-2); EOSINOPHILS ABSOLUTE AUTO 0.36 K/mm3 (0.00-0.68); EOSINOPHILS PERCENT AUTO 3 % (0-6); Hematocrit 36.7 % (33.0-51.0); Hemoglobin 11.6 g/dL (11.5-16.0); IMMATURE GRAN ABSOLUTE AUTO 0.20 K/mm3 (0.00-0.10); IMMATURE GRAN PERCENT AUTO 2 % (0-1); LYMPHOCYTES ABSOLUTE AUTO 2.23 K/mm3 (0.84-5.20); LYMPHOCYTES PERCENT AUTO 21 % (21-46); MONOCYTES ABSOLUTE AUTO 0.79 K/mm3 (0.16-1.47); MONOCYTES PERCENT AUTO 7 % (4-13); Mean Corpuscular HGB Conc 31.6 g/dL (31.5-36.5); Mean Corpuscular Volume 96 fL (80-100); NEUTROPHILS ABSOLUTE AUTO 7.13 K/mm3 (1.96-9.15); NEUTROPHILS PERCENT AUTO 66 % (41-73); NRBC ABSOLUTE 0.00 K/mm3 (0.00-0.02); NRBC Auto 0.0 /100 WBC (0.0-0.2); Platelet Count 458 K/mm3 (150-400); RDW Coefficient Variation 13.2 % (11.7-14.2); RDW Standard Deviation 46.5 fL (35.1-46.3)
[2025-04-07 05:30] LABS: Anion Gap 9.0 mmol/L (3-11); Blood Urea Nitrogen 9.0 mg/dL (8-24); CO2, Blood 28.0 mmol/L (21-32); Calcium, Blood 8.7 mg/dL (8.5-10.1); Chloride, Blood 101.0 mmol/L (98-108); Creatinine, Blood 0.74 mg/dL (0.40-1.00); Glucose, Blood 186.0 mg/dL (70-99); Potassium, Blood 3.6 mmol/L (3.5-5.5); Sodium, Blood 134.0 mmol/L (136-145)
[2025-04-07 07:34] VITALS: BP 121/63
[2025-04-07 15:41] VITALS: BP 130/59
[2025-04-07] MEDS ORDERED: AMOCLA875 PO (16:37)
[2025-04-07] MEDS ORDERED: MIRALAX17 GM PO (16:37)
--- NOTE | 2025-04-07 17:14 | NUR ---
DISCHARGE: PER DR BROTHERS PT OK TO DC. PT GIVEN DC INSTRUCTIONS AND EDUCATED ON SEN CARE/ CHARTING. PT GIVEN SUPPLIES. MEDS FAXED TO [facility]. PT LEFT UNIT AT ABOUT 1630 VIA WHEELCHAIR WITH JUDY
== END 2025-04-07 16:46 | disposition home or self-care (01) | DRG 853 ==
LOC: ER 01:01 → SURS 01:02
PROVIDERS: Emergency Medicine; Obstetrics & Gynecology; Student in an Organized Health Care Education/Training Program; Surgery; ADMIT Internal Medicine
PROC: 8E0W4CZ Robotic Assisted Procedure of Trunk Region, Percutaneous Endoscopic Approach (ICD-10-PCS; 2025-04-03)
PROC: 3E03329 Introduction of Other Anti-infective into Peripheral Vein, Percutaneous Approach (ICD-10-PCS; 2025-04-03)
PROC: 3E02340 Introduction of Influenza Vaccine into Muscle, Percutaneous Approach (ICD-10-PCS; 2025-04-03)
PROC: 0DTJ4ZZ Resection of Appendix, Percutaneous Endoscopic Approach (ICD-10-PCS; principal; 2025-04-03 16:30)
PROC: 0UDB7ZX Extraction of Endometrium, Via Natural or Artificial Opening, Diagnostic (ICD-10-PCS; 2025-04-03 16:30)
DX: A41.9 Sepsis, unspecified organism (principal); K35.33 Acute appendicitis with perforation, localized peritonitis, and gangrene, with abscess; Z68.41 Body mass index [BMI] 40.0-44.9, adult; E87.1 Hypo-osmolality and hyponatremia; F41.9 Anxiety disorder, unspecified; F32.A Depression, unspecified; I25.10 Atherosclerotic heart disease of native coronary artery without angina pectoris; E78.5 Hyperlipidemia, unspecified; I10 Essential (primary) hypertension; E66.9 Obesity, unspecified; K31.84 Gastroparesis; E11.65 Type 2 diabetes mellitus with hyperglycemia; E11.319 Type 2 diabetes mellitus with unspecified diabetic retinopathy without macular edema; E11.43 Type 2 diabetes mellitus with diabetic autonomic (poly)neuropathy; D25.9 Leiomyoma of uterus, unspecified; K21.9 Gastro-esophageal reflux disease without esophagitis; D75.838 Other thrombocytosis; I25.2 Old myocardial infarction; Z98.890 Other specified postprocedural states; Z98.51 Tubal ligation status; Z88.5 Allergy status to narcotic agent; Z79.899 Other long term (current) drug therapy; Z79.4 Long term (current) use of insulin; Z79.82 Long term (current) use of aspirin; Z79.51 Long term (current) use of inhaled steroids; Z87.81 Personal history of (healed) traumatic fracture; Z95.5 Presence of coronary angioplasty implant and graft; Z87.39 Personal history of other diseases of the musculoskeletal system and connective tissue; Z87.891 Personal history of nicotine dependence; Z86.79 Personal history of other diseases of the circulatory system
CPT/HCPCS: 36415; 74177; 80048; 80053; 81001; 82947; 83605; 83690; 83880; 85025; 88304; 88305; 93005; 93010; 96374-59; 99285-25; A9270; G0378; J0295; J0330; J1100; J1171; J1650; J1815; J1885; J2250; J2405; J2543; J2704; J2765; J3010; J3475; J7030; J7050; J7120; Q9967